=== PATIENT | female | born 1975 | race Asian ===

== ENCOUNTER 2018-06-10 13:27 | Inpatient (IN) | payer MEDICAID, MEDICARE ==
[~2018-06-10] VITALS: Ht 167.6 cm; Wt 77.1 kg
[2018-06-10] MEDS ORDERED: DIVA-78 PO (14:17)
[2018-06-10] MEDS ORDERED: PALI6 PO (14:19)
[2018-06-10] MEDS ORDERED: LORazepam 1 MG TABLET PO ONE (15:00)
[2018-06-10 16:31] LABS: BASOPHILS % (AUTO) 0.2 % (0.0-2.0); EOSINOPHILS % (AUTO) 0.4 % (1.0-6.0); HEMATOCRIT 41.9 % (36-46); HEMOGLOBIN 14.7 g/dL (12.0-16.0); LYMPHOCYTES # (AUTO) 1.3 K/uL (1.0-4.8); LYMPHOCYTES % (AUTO) 12.5 % (22.0-44.0); MEAN CORPUSCULAR HEMOGLOBIN 32.2 pg (26.0-34.0); MEAN CORPUSCULAR HGB CONC 35.1 G/dL (31.0-37.0); MEAN CORPUSCULAR VOLUME 92 fL (80-100); MONOCYTES # (AUTO) 0.4 K/uL (0.1-1.0); MONOCYTES % (AUTO) 4.2 % (2.0-9.0); NEUTROPHILS # (AUTO) 8.4 K/uL (1.8-7.7); NEUTROPHILS % (AUTO) 82.7 % (40.0-70.0); PLATELET COUNT (AUTO) 209 K/uL (150-450); RED BLOOD CELL COUNT(AUTO) 4.55 MIL/uL (4.00-5.20); RED CELL DISTRIBUTION WIDTH 12.7 % (11.5-14.5)
[2018-06-10 16:45] LABS: ANION GAP 8 mmol/L (8-16); CALCIUM, TOTAL 9.3 mg/dL (8.8-10.5); CARBON DIOXIDE 30 mmol/L (22-29); CHLORIDE 100 mmol/L (98-107); CREATININE 0.76 mg/dL (0.60-1.30); GLOMERULAR FILTR. RATE CALC > 60 mL/min (>60); GLUCOSE,RANDOM 122 mg/dL (70-110); POTASSIUM 3.8 mmol/L (3.5-5.1); SODIUM SERUM 138 mmol/L (136-145); UREA NITROGEN, BLOOD 7 mg/dL (7-18)
[2018-06-10 16:56] LABS: ALANINE AMINOTRANSFERASE 21 U/L (12-78); ALKALINE PHOSPHATASE 74 U/L (46-116); ASPARTATE AMINOTRANSFERASE 18 U/L (15-37); BILIRUBIN,TOTAL 1.5 mg/dL (0.1-1.0); HCG,QUANTITATIVE < 1 mIU/mL (0-6); THYROID STIMULATING HORMONE 0.96 uIU/mL (0.36-3.74); TOTAL PROTEIN, SERUM 7.3 g/dL (6.4-8.2); VALPROIC ACID 10 mcg/mL (50-100)
[2018-06-10] MEDS ORDERED: ACETAMINOPHEN 325 MG TABLET PO PRN (17:30)
[2018-06-10] MEDS ORDERED: ZOLPIDEM TARTRATE 10 MG TABLET PO PRN (17:30)
[2018-06-10] MEDS ORDERED: HALOPERIDOL 5 MG TABLET PO PRN (17:30)
[2018-06-10] MEDS ORDERED: LORazepam 2 MG TABLET PO PRN (17:30)
[2018-06-10] MEDS ORDERED: IBUPROFEN 400 MG TABLET PO PRN (17:30)
[2018-06-10 21:30] VITALS: BP 113/80
[2018-06-11 06:22] VITALS: BP 106/68
[2018-06-11 08:39] VITALS: BP 102/66
[2018-06-11] MEDS: BusPIRone HCL 5 MG TABLET PO SCH ×2 (12:45→20:30)
[2018-06-11] MEDS ORDERED: PETROLATUM,WHITE 71 GM JELLY TP PRN (15:00)
[2018-06-11] MEDS ORDERED: DOCUSATE SODIUM 100 MG CAPSULE PO PRN (15:00)
[2018-06-11] MEDS ORDERED: MAG HYDROX/AL HYDROX/SIMETH ES 30 ML SUSPENSION UDCUP PO PRN (15:00)
[2018-06-11] MEDS ORDERED: LOPERAMIDE HCL 2 MG CAPSULE PO PRN (15:00)
[2018-06-11] MEDS ORDERED: GuaiFENesin/D-METHORPHAN [SUGAR-FREE] 200-20MG/10 ML SYRUP UDCUP PO PRN (15:00)
[2018-06-11] MEDS ORDERED: ACETAMINOPHEN 325 MG TABLET PO PRN (15:00)
[2018-06-11] MEDS ORDERED: NICOTINE 14 MG/24 HOUR PATCH TD PRN (15:00)
[2018-06-11] MEDS ORDERED: ONDANSETRON HCL 4 MG TABLET PO PRN (15:00)
[2018-06-11] MEDS ORDERED: ALBUTEROL SULFATE HFA 90 MCG/PUFF 8 GM INHALER IH PRN (15:00)
[2018-06-11] MEDS ORDERED: CloNIDine HCL 0.1 MG TABLET PO PRN (15:00)
[2018-06-11] MEDS ORDERED: MAGNESIUM HYDROXIDE SUSPENSION 30 ML UDCUP PO PRN (15:00)
[2018-06-11] MEDS ORDERED: IBUPROFEN 400 MG TABLET PO PRN (15:00)
[2018-06-11 16:44] VITALS: BP 110/67
[2018-06-11] MEDS: DIVALPROEX SODIUM 500 MG DR TABLET PO SCH (20:30)
[2018-06-11] MEDS: PALIPERIDONE 6 MG ER TABLET PO SCH (20:30)
[2018-06-12 07:22] VITALS: BP 112/69
[2018-06-12 08:08] VITALS: BP 111/66
[2018-06-12] MEDS: BusPIRone HCL 5 MG TABLET PO SCH ×2 (08:34→20:08)
[2018-06-12 16:05] VITALS: BP 119/72
[2018-06-12] MEDS: DIVALPROEX SODIUM 500 MG DR TABLET PO SCH (20:08)
[2018-06-12] MEDS: PALIPERIDONE 6 MG ER TABLET PO SCH (20:08)
[2018-06-13 00:19] VITALS: BP 120/81
[2018-06-13] MEDS: BusPIRone HCL 5 MG TABLET PO SCH ×2 (08:16→20:19)
[2018-06-13 09:05] LABS: HEMOGLOBIN A1C 5.3 % (4.5-6.2)
[2018-06-13 09:10] LABS: CHOL/HDL RATIO 3.6 (3.9-5.7); FREE T4 (FREE THYROXINE) 1.28 ng/dL (0.76-1.46); THYROID STIMULATING HORMONE 1.36 uIU/mL (0.36-3.74)
[2018-06-13 09:25] VITALS: BP 118/71
[2018-06-13 16:06] VITALS: BP 120/77
[2018-06-13] MEDS: PALIPERIDONE 6 MG ER TABLET PO SCH (20:19)
[2018-06-13] MEDS: DIVALPROEX SODIUM 500 MG DR TABLET PO SCH (20:19)
[2018-06-14 02:54] VITALS: BP 121/82
[2018-06-14 08:10] VITALS: BP 117/80
[2018-06-14] MEDS: BusPIRone HCL 5 MG TABLET PO SCH ×2 (08:16→20:36)
[2018-06-14 16:06] VITALS: BP 123/86
[2018-06-14] MEDS: DIVALPROEX SODIUM 500 MG DR TABLET PO SCH (20:36)
[2018-06-14] MEDS: PALIPERIDONE 6 MG ER TABLET PO SCH (20:36)
[2018-06-15 04:45] VITALS: BP 120/81
[2018-06-15 08:18] VITALS: BP 112/64
[2018-06-15] MEDS: BusPIRone HCL 5 MG TABLET PO SCH ×2 (08:21→20:29)
[2018-06-15 16:05] VITALS: BP 115/70
[2018-06-15] MEDS: PALIPERIDONE 6 MG ER TABLET PO SCH (20:29)
[2018-06-15] MEDS: DIVALPROEX SODIUM 500 MG DR TABLET PO SCH (20:29)
[2018-06-16 02:48] VITALS: BP 118/77
[2018-06-16 08:13] VITALS: BP 118/78
[2018-06-16] MEDS: BusPIRone HCL 5 MG TABLET PO SCH ×2 (08:34→20:32)
[2018-06-16 16:13] VITALS: BP 119/80
[2018-06-16] MEDS: DIVALPROEX SODIUM 500 MG DR TABLET PO SCH (20:32)
[2018-06-16] MEDS: PALIPERIDONE 6 MG ER TABLET PO SCH (20:32)
[2018-06-17] MEDS: BusPIRone HCL 5 MG TABLET PO SCH ×2 (08:29→20:30)
[2018-06-17 08:31] VITALS: BP 114/66
[2018-06-17 16:43] VITALS: BP 110/72
[2018-06-17] MEDS: DIVALPROEX SODIUM 500 MG DR TABLET PO SCH (20:30)
[2018-06-17] MEDS: PALIPERIDONE 6 MG ER TABLET PO SCH (20:30)
[2018-06-18 06:26] VITALS: BP 114/76
[2018-06-18 08:06] VITALS: BP 134/75
[2018-06-18] MEDS: BusPIRone HCL 5 MG TABLET PO SCH ×2 (08:40→20:05)
[2018-06-18 16:22] VITALS: BP 145/83
[2018-06-18] MEDS: DIVALPROEX SODIUM 500 MG DR TABLET PO SCH (20:05)
[2018-06-18] MEDS: PALIPERIDONE 6 MG ER TABLET PO SCH (20:05)
[2018-06-19 05:30] VITALS: BP 120/81
[2018-06-19] MEDS: BusPIRone HCL 5 MG TABLET PO SCH ×2 (08:06→20:37)
[2018-06-19 08:14] VITALS: BP 110/72
[2018-06-19 16:15] VITALS: BP 113/85
[2018-06-19] MEDS: DIVALPROEX SODIUM 500 MG DR TABLET PO SCH (20:37)
[2018-06-19] MEDS: PALIPERIDONE 6 MG ER TABLET PO SCH (20:37)
[2018-06-20 05:10] VITALS: BP 118/65
[2018-06-20] MEDS: BusPIRone HCL 5 MG TABLET PO SCH ×2 (08:23→20:33)
[2018-06-20 08:30] VITALS: BP 123/63
[2018-06-20 16:03] VITALS: BP 120/71
[2018-06-20] MEDS: DIVALPROEX SODIUM 500 MG DR TABLET PO SCH (20:33)
[2018-06-20] MEDS: PALIPERIDONE 6 MG ER TABLET PO SCH (20:33)
[2018-06-21 05:28] VITALS: BP 118/75
[2018-06-21 08:28] VITALS: BP 119/69
[2018-06-21] MEDS: BusPIRone HCL 5 MG TABLET PO SCH (08:30)
[2018-06-21] MEDS ORDERED: BUSP5TAB20 PO (12:31)
[2018-06-21] MEDS ORDERED: DIVALPROEX SODIUM 500 MG DR TABLET PO SCH (17:00)
== END 2018-06-21 14:10 | disposition home or self-care (01) | DRG 885 ==
LOC: EMS 13:28 → B2X 17:44
PROVIDERS: ADMIT Psychiatry & Neurology Psychiatry; ATTEND Psychiatry & Neurology Psychiatry
DX: F25.0 Schizoaffective disorder, bipolar type (principal); R45.851 Suicidal ideations; F41.0 Panic disorder [episodic paroxysmal anxiety]; F17.200 Nicotine dependence, unspecified, uncomplicated; R73.9 Hyperglycemia, unspecified; E80.6 Other disorders of bilirubin metabolism; G47.00 Insomnia, unspecified; F41.1 Generalized anxiety disorder; R45.87 Impulsiveness; Z59.0 Homelessness; Z65.3 Problems related to other legal circumstances; Z91.14 Patient's other noncompliance with medication regimen
CPT/HCPCS: 83036; 84439; 84443; G0480